=== PATIENT | female | born 1980 | race Caucasian/White ===

== ENCOUNTER 2023-03-02 07:32 | Outpatient (CLI) | payer OTHER, SELFPAY ==
--- NOTE | 2023-03-02 07:45 | CRLHL7_ITS ---
For Patients: As a result of the Century Cures Act, medical imaging exams and procedure reports are released immediately into your electronic medical record. You may view this report before your referring provider. If you have questions, please contact your health care provider. BILATERAL SCREENING MAMMOGRAM WITH COMPUTER-AIDED DETECTION AND TOMOSYNTHESIS TECHNIQUE: CC and MLO views were obtained. These mammographic images have been obtained using full-field digital technique. These mammographic images were interpreted with the benefit of computer-aided detection. Breast Tomosynthesis was used in this interpretation. COMPARISON FILM: 08/24/21. FINDINGS: There are scattered areas of fibroglandular density IMPRESSION: There is no radiographic evidence for malignancy. ASSESSMENT: BI-RADS Category 1: Negative RECOMMENDATION: Routine screening mammogram in 1 year. A lay language report of this examination will be provided to the patient. Mil Bravo M.D. Diagnostic Radiologist [email or web address] [place]/Dictated by: Mil Bravo MD @ 03/08/2023 10:52:00 AM (Electronically Signed)
== END 2023-03-02 07:33 | disposition home or self-care (01) ==
LOC: MAMMO 07:35
PROVIDERS: Visit Provider Physician Assistant
DX: Z12.31 Encounter for screening mammogram for malignant neoplasm of breast (principal)
CPT/HCPCS: 77063; 77067

== ENCOUNTER 2023-04-05 15:03 | Outpatient (CLI) | payer OTHER, SELFPAY | END 2023-04-05 15:04 | disposition home or self-care (01) | LOC: LKVREF 15:04 | PROVIDERS: Visit Provider Physician Assistant Medical | DX: E03.9 Hypothyroidism, unspecified (principal); I10 Essential (primary) hypertension; E66.9 Obesity, unspecified | CPT/HCPCS: 84443 ==

== ENCOUNTER 2023-10-25 16:24 | Outpatient (CLI) | payer OTHER, SELFPAY ==
[2023-10-25 23:37] LABS: Chlamydia DNA Amplified* NOT DETECTED (No Detected); GC DNA Amplified* NOT DETECTED (No Detected)
== END 2023-10-25 16:25 | disposition home or self-care (01) ==
LOC: LKVREF 16:24
PROVIDERS: Visit Provider Physician Assistant Medical
DX: Z11.3 Encounter for screening for infections with a predominantly sexual mode of transmission (principal)
CPT/HCPCS: 87491; 87591

== ENCOUNTER 2024-05-05 08:01 | Outpatient (CLI) | payer OTHER, SELFPAY | END 2024-05-05 08:02 | disposition home or self-care (01) | LOC: NFLDREF 15:34 | PROVIDERS: PCP Physician Assistant Medical; Visit Provider Physician Assistant Medical | DX: Z00.00 Encounter for general adult medical examination without abnormal findings (principal); R82.90 Unspecified abnormal findings in urine; Z13.29 Encounter for screening for other suspected endocrine disorder; Z13.0 Encounter for screening for diseases of the blood and blood-forming organs and certain disorders involving the immune mechanism; Z13.6 Encounter for screening for cardiovascular disorders | CPT/HCPCS: 80061; 84443; 87086 ==

== ENCOUNTER 2024-06-02 16:21 | Outpatient (CLI) | payer OTHER, SELFPAY | END 2024-06-02 16:22 | disposition home or self-care (01) | LOC: NFLDREF 06-04 12:38 | PROVIDERS: PCP Physician Assistant Medical; Visit Provider Physician Assistant Medical | DX: I10 Essential (primary) hypertension (principal); E03.9 Hypothyroidism, unspecified | CPT/HCPCS: 80053 ==